=== PATIENT | male | born 1955 | race Caucasian/White ===

== ENCOUNTER 2017-03-16 19:48 | Day surgery (SDC) | payer BC, OTHER ==
[~2017-03-16] VITALS: Ht 180.3 cm; Wt 112.9 kg
[2017-03-16] MEDS ORDERED: KETOROLAC 30 MG/ML VIAL ONE (19:55)
[2017-03-16] MEDS ORDERED: fentaNYL INJECTION 100 MCG/2 ML AMP ONE ×2 (19:55→20:46)
[2017-03-16] MEDS ORDERED: ORPHENADRINE 60 MG/2 ML (NORFLEX) AMP ONE (19:56)
[2017-03-16 20:39] LABS: BASOPHILS # (AUTO) 0.1 10^3/uL (0.0-0.1); BASOPHILS % (AUTO) 1 % (0-10); EOSINOPHILS # (AUTO) 0.1 10^3/uL (0.0-0.3); EOSINOPHILS % (AUTO) 1 % (0-10); LYMPHOCYTES # (AUTO) 4.1 X 10^3 (1.0-4.0); LYMPHOCYTES % (AUTO) 43 % (12-44); MEAN CORPUSCULAR HEMOGLOBIN 30 PG (25-34); MEAN CORPUSCULAR HGB CONC 34 G/DL (32-36); MEAN CORPUSCULAR VOLUME 90 FL (80-99); MEAN PLATELET VOLUME 10.1 FL (7.4-10.4); MONOCYTES # (AUTO) 0.7 X 10^3 (0.0-1.0); MONOCYTES % (AUTO) 7 % (0-12); NEUTROPHILS # (AUTO) 4.7 X 10^3 (1.8-7.8); NEUTROPHILS % (AUTO) 49 % (42-75); PLATELET COUNT 214 10^3/uL (130-400); RED CELL DISTRIBUTION WIDTH 13.2 % (10.0-14.5); WHITE BLOOD COUNT 9.6 10^3/uL (4.3-11.0)
--- NOTE | 2017-03-16 20:44 | Diagnostic Imaging Report ---
INDICATION: Injury, fall off lawnmower. Deformity EXAMINATION: Right ankle dated 03/16/2017 FINDINGS: Three views of the ankle There is a transverse fracture through the medial malleolus which is displaced with diastases of at least 1.2 cm on the oblique view. Widening of the medial ankle mortise is also seen. Talar dome is grossly unremarkable. There is an oblique fracture of the distal fibula with mild displacement and foreshortening at the fracture site. A vague lucency in the posterior malleolus is noted possibly a fracture as well. Soft tissue swelling seen about the ankle. IMPRESSION: 1. Distal fibular and tibial fractures as described with widening at the ankle mortise. Postreduction films recommended. Dictated by: Dictated on workstation # [id number]
[2017-03-16] MEDS ORDERED: fentaNYL INJECTION 100 MCG/2 ML AMP IVP STA (20:49)
[2017-03-16 20:52] LABS: ALBUMIN 4.3 GM/DL (3.2-4.5); BILIRUBIN,TOTAL 0.3 MG/DL (0.1-1.0); CALCIUM 9.6 MG/DL (8.5-10.1); CREATININE SERUM 1.24 MG/DL (0.60-1.30); POTASSIUM 4.1 MMOL/L (3.6-5.0); TOTAL PROTEIN 7.3 GM/DL (6.4-8.2)
--- NOTE | 2017-03-16 20:52 | ED Lower Extremity ---
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 The patient was on his riding mower when he started to tip he extended his right leg and the ankle rolled. He had no injuries from the lawnmower. He is unable to bear weight on the right lower extremity. He denies any previous history of injuries to either lower extremities. He had a recent left elbow bursectomy by Dr. Clark Onset: just prior to arrival Pain/Injury Location: right ankle Method of Injury: twisted Modifying Factors: Improves With Immobilization, Improves With Rest Allergies and Home Medications Allergies Coded Allergies: No Known Drug Allergies (Unverified , 03/16/17) Home Medications [No Home Meds] Prescribed by: YULISA HERNANDEZ on 03/16/17 7428 Constitutional: no symptoms reported, see HPI EENTM: no symptoms reported, see HPI Respiratory: no symptoms reported, see HPI Cardiovascular: no symptoms reported, see HPI Gastrointestinal: no symptoms reported, see HPI Genitourinary: no symptoms reported, see HPI Musculoskeletal: see HPI, joint pain Skin: no symptoms reported (right ankle), see HPI Psychiatric/Neurological: No Symptoms Reported, See HPI All Other Systems Reviewed Negative Unless Noted: Yes Past Dhnoojh-Frhnrx-Bdywns Hx Patient Social History Alcohol Use: Denies Use Recreational Drug Use: No Smoking Status: Never a Smoker Recent Foreign Travel: No Contact w/Someone Who Travel: No Recent Infectious Disease Expo: No Recent Hopitalizations: No Seasonal Allergies Seasonal Allergies: No Cancer Hx Cancer: Yes Cancer: Lymphoma (right eye) Reviewed Nursing Assessment Reviewed/Agree w Nursing PMH: Yes Physical Exam Vital Signs Vital Sign - Last 12Hours 03/16/17 03/16/17 19:55 21:50 Temp 97.5 Pulse 73 Resp 18 B/P (MAP) 148/92 Pulse Ox 97 O2 Delivery Room Air Capillary Refill : Less Than 3 Seconds General Appearance: WD/WN, no apparent distress HEENT: PERRL/EOMI, normal ENT inspection, TMs normal, pharynx normal Neck: non-tender, full range of motion, supple, normal inspection Cardiovascular: normal peripheral pulses, regular rate, rhythm, no edema, no JVD, no murmur Respiratory: chest non-tender, lungs clear, normal breath sounds Gastrointestinal: normal bowel sounds, non tender, soft, No distended, No guarding Back: normal inspection, no CVA tenderness, no vertebral tenderness Hips: bilateral hip non-tender, bilateral hip normal inspection, bilateral hip normal range of motion Knees: bilateral knee non-tender, bilateral knee normal inspection, bilateral knee normal range of motion Ankles: left ankle non-tender, left ankle normal inspection, left ankle normal range of motion, left ankle no evidence of injury, right ankle bone tenderness, right ankle deformity, right ankle limited range of motion, right ankle pain, right ankle soft tissue tenderness, right ankle swelling, right ankle other ( neurovascular status intact right lower extremity, pedal pulses 2+) Neurologic/Tendon: normal sensation, normal motor functions, normal tendon functions, responds to pain Neurologic/Psychiatric: no motor/sensory deficits, alert, normal mood/affect, oriented x 3 Skin: normal color, warm/dry Lymphatic: no adenopathy Progress/Results/Core Measures Results/Orders Lab Results Laboratory Tests Test 03/16/17 20:00 03/16/17 21:11 Range/Units White Blood Count 9.6 4.3-11.0 10^3/uL Red Blood Count 5.10 4.35-5.85 10^6/uL Hemoglobin 15.4 13.3-17.7 G/DL Hematocrit 46 40-54 % Mean Corpuscular Volume 90 80-99 FL Mean Corpuscular Hemoglobin 30 25-34 PG Mean Corpuscular Hemoglobin Concent 34 32-36 G/DL Red Cell Distribution Width 13.2 10.0-14.5 % Platelet Count 214 130-400 10^3/uL Mean Platelet Volume 10.1 7.4-10.4 FL Neutrophils (%) (Auto) 49 42-75 % Lymphocytes (%) (Auto) 43 12-44 % Monocytes (%) (Auto) 7 0-12 % Eosinophils (%) (Auto) 1 0-10 % Basophils (%) (Auto) 1 0-10 % Neutrophils # (Auto) 4.7 1.8-7.8 X 10^3 Lymphocytes # (Auto) 4.1 H 1.0-4.0 X 10^3 Monocytes # (Auto) 0.7 0.0-1.0 X 10^3 Eosinophils # (Auto) 0.1 0.0-0.3 10^3/uL Basophils # (Auto) 0.1 0.0-0.1 10^3/uL Sodium Level 142 135-145 MMOL/L Potassium Level 4.1 3.6-5.0 MMOL/L Chloride Level 110 H 98-107 MMOL/L Carbon Dioxide Level 19 L 21-32 MMOL/L Anion Gap 13 5-14 MMOL/L Blood Urea Nitrogen 18 7-18 MG/DL Creatinine 1.24 0.60-1.30 MG/DL Estimat Glomerular Filtration Rate 59 BUN/Creatinine Ratio 15 Glucose Level 124 H 70-105 MG/DL Calcium Level 9.6 8.5-10.1 MG/DL Total Bilirubin 0.3 0.1-1.0 MG/DL Aspartate Amino Transf (AST/SGOT) 31 5-34 U/L Alanine Aminotransferase (ALT/SGPT) 21 0-55 U/L Alkaline Phosphatase 82 40-136 U/L Total Protein 7.3 6.4-8.2 GM/DL Albumin 4.3 3.2-4.5 GM/DL Prothrombin Time 12.8 12.2-14.7 SEC INR Comment 1.0 0.8-1.4 Activated Partial Thromboplast Time 24 24-35 SEC My Orders Orders - LINDEN WATSON Ankle, Right, 3 Views (03/16/17 19:59) Fentanyl Injection (Sublimaze Injection (03/16/17 19:55) Ketorolac Injection (Toradol Injection) (03/16/17 19:55) Orphenadrine Injection (Norflex Injectio (03/16/17 19:56) Cbc With Automated Diff (03/16/17 20:34) Comprehensive Metabolic Panel (03/16/17 20:34) Protime With Inr (03/16/17 20:34) Partial Thromboplastin Time (03/16/17 20:34) Ua Culture If Indicated (03/16/17 20:34) Ekg Tracing (03/16/17 20:34) Fentanyl Injection (Sublimaze Injection (03/16/17 20:49) Fentanyl Injection (Sublimaze Injection (03/16/17 20:46) Hyoscyamine Sl Tablet (Levsin Sl Tablet) (03/16/17 21:00) Acetaminophen Tablet/Caplet (Tylenol T (03/16/17 20:53) Medications Given in ED Current Medications Medications Dose Ordered Sig/Faraz Route Start Time Stop Time Status Last Admin Dose Admin Fentanyl Citrate 100 mcg STK-MED ONCE .ROUTE 03/16/17 19:55 03/16/17 20:01 DC 03/16/17 20:05 100 MCG Fentanyl Citrate 100 mcg STK-MED ONCE .ROUTE 03/16/17 20:46 03/16/17 20:51 DC 03/16/17 20:53 100 MCG Ketorolac Tromethamine 30 mg STK-MED ONCE .ROUTE 03/16/17 19:55 03/16/17 20:02 DC 03/16/17 20:05 30 MG Orphenadrine Citrate 60 mg STK-MED ONCE .ROUTE 03/16/17 19:56 03/16/17 20:02 DC 03/16/17 20:05 60 MG Vital Signs/I&O Vital Sign - Last 12Hours 03/16/17 03/16/17 03/16/17 19:55 21:50 22:35 Temp 97.5 99.3 97.5 Pulse 73 65 73 Resp 18 18 18 B/P (MAP) 148/92 137/66 Pulse Ox 97 94 97 O2 Delivery Room Air Blood Pressure Mean: 110 Progress Note : Time: 19:50 Progress Note Initial evaluation completed, we'll obtain x-rays of the right ankle. Fentanyl 50 g IV for pain, Toradol 30 mg IV, Norflex 60 mg IV. Ice to right ankle elevated on pillow. 2114 patient reports pain is tolerable, 12/19. 2044 discussed patient's x-rays and exam with Dr. Hernandez. He will come to emergency department for evaluation patient. 2049 patient reports pain is increasing again, fentanyl [address] Hernandez here for splint application, patient tolerated procedure well. [address] Martinez by phone, agreed to admit patient for medical evaluation and management as hospitalist. ECG Initial ECG Impression Date: Mar 16, 2017 Initial ECG Impression Time: 21:01 Initial ECG Rate: 59 Initial ECG Rhythm: Normal Sinus Initial ECG Intervals: Normal Initial ECG Intervals ND to 36, QRS T 96, QT 400, QTC 397. [place] P 49, QRS -36, T 7 Initial ECG Impression: 1st Degree AV Block (with left axis deviation.) Initial ECG Comparisson: No Previous ECG Available Comment EKG reviewed with Dr. Loya, agreed with ROSARIO barahona. Diagnostic Imaging Diagonstic Imaging: Xray Plain Films/CT/US/NM/MRI: ankle Comments NAME: [facility] REC#: [id number] PT STATUS: REG ER : 1955 PHYSICIAN: LINDEN WATSON ADMIT DATE: 03/16/17/ER Draft Date of Exam:03/16/17 ANKLE, RIGHT, 3 VIEWS INDICATION: Injury, fall off lawnmower. Deformity EXAMINATION: Right ankle dated 03/16/2017 FINDINGS: Three views of the ankle There is a transverse fracture through the medial malleolus which is displaced with diastases of at least 1.2 cm on the oblique view. Widening of the medial ankle mortise is also seen. Talar dome is grossly unremarkable. There is an oblique fracture of the distal fibula with mild displacement and foreshortening at the fracture site. A vague lucency in the posterior malleolus is noted possibly a fracture as well. Soft tissue swelling seen about the ankle. IMPRESSION: 1. Distal fibular and tibial fractures as described with widening at the ankle mortise. Postreduction films recommended. Dictated on workstation # [id number] Dict: 03/16/172035 Trans: 03/16/172042 [facility] [id number] Interpreted by: BERNARD NIELSEN MD Electronically signed by: Reviewed: Reviewed by Me Departure Impression Impression: Primary Impression: Trimalleolar fracture of right ankle Qualified Codes: S82.851A - Displaced trimalleolar fracture of right lower leg , initial encounter for closed fracture Disposition: ADMITTED INPATIENT Condition: Improved Decision to Admit Reason: Admit from ER (General) Decision to Admit/Date: Mar 17, 2017 Time/Decision to Admit Time: 21:00 Departure-Patient Inst. Scripts [No Home Meds] No Conflict Check Prov: YULISA HERNANDEZ MD 03/16/17 LINDEN WATSON Mar 16, 2017 20:52
[2017-03-16] MEDS ORDERED: ACETAMINOPHEN 325 MG TABLET/CAPLET (TYLENOL) PO STA (20:53)
[2017-03-16] MEDS ORDERED: HYOSCYAMINE 0.125 MG (LEVSIN) TAB SL ONE (21:00)
[2017-03-16 21:32] LABS: PROTHROMBIN TIME PATIENT 12.8 SEC (12.2-14.7)
[2017-03-16 21:50] VITALS: BP 137/66
--- NOTE | 2017-03-16 22:29 | Consultation ---
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 Allergies and Home Medications Allergies Coded Allergies: No Known Drug Allergies (Unverified , 03/16/17) Home Medications [No Home Meds] Prescribed by: YULISA HERNANDEZ on 03/16/17 3147 Past Zvqtvgc-Vlhopk-Npescf Hx Patient Social History Alcohol Use: Denies Use Recreational Drug Use: No Smoking Status: Never a Smoker Recent Foreign Travel: No Contact w/Someone Who Travel: No Recent Infectious Disease Expo: No Recent Hopitalizations: No Seasonal Allergies Seasonal Allergies: No Physical Exam-General Problems Physical Exam Vital Signs Vital Sign - Last 12Hours 03/16/17 19:55 Temp 97.5 Pulse 73 Resp 18 B/P (MAP) 148/92 Pulse Ox 97 Capillary Refill : Less Than 3 Seconds General Appearance: WD/WN, mild distress Eyes: Bilateral Eye Normal Inspection Respiratory: no respiratory distress, no accessory muscle use Extremities: other (RIGHT ANKLE MILD SWELLING. SKIN INTACT. MILD DEFORMITY.) Assessment/Plan Assessment/Plan Admission Diagnosis/Plan RIGHT ANKLE BIMALLEOLAR FRACTURE WITH SYNDESMOTIC LIGAMENT DISRUPTED. CLOSED, INITIAL ENCOUNTER, NONARTICULAR. PLAN: CONSENT COMPLEATED. TOMORROW: SURGERY ON RIGHT ANKLE TO LINE UP BONE AND FIX WITH HARDWARE. Clinical Quality Measures DVT/VTE Risk/Contraindication: RFS Level Per Nursing on Admit: 2=Moderate Contraindications-Mechi: Other *list below* Other: OK TO USE ON LEFT, RIGHT HAS FRACTURE AND TOO PAINFUL TO USE YULISA HERNANDEZ MD Mar 16, 2017 22:29
[2017-03-16] MEDS ORDERED: NO HOME MEDS (22:37)
[2017-03-16 22:45] LABS: BILIRUBIN,URINE NEGATIVE (NEGATIVE); KETONES,URINE 1+ (NEGATIVE); LEUKOCYTE ESTERASE ,URINE NEGATIVE (NEGATIVE); NITRITE,URINE NEGATIVE (NEGATIVE); PH,URINE 5 (5-9); PROTEIN,URINE 1+ (NEGATIVE); UROBILINOGEN,URINE NORMAL (NORMAL)
[2017-03-16 23:11] LABS: WBC,URINE 0-2 /HPF
[2017-03-16] MEDS ORDERED: NS IV 1000 ML 1,000 ML ONE (23:34)
[2017-03-17] MEDS ORDERED: NS IV 1000 ML 1,000 ML IV SCH ×2 (00:45→10:21)
[2017-03-17] MEDS ORDERED: ONDANSETRON 4 MG/2 ML (SDV) Z0FRAN IV PRN ×3 (01:00→10:30)
[2017-03-17] MEDS ORDERED: oxyCODONE/APAP 7.5-325 MG (PERCOCET 7.5) TABLET PO PRN (01:00)
[2017-03-17] MEDS ORDERED: ceFAZolin 2 GM/NS 50 ML IV ONE (01:00)
[2017-03-17] MEDS: HYDROmorphone (DILAUDID) 2 MG/ML VIAL IV PRN ×2 (01:05→07:17)
[2017-03-17 04:00] VITALS: BP 133/75
[2017-03-17 08:00] VITALS: BP 130/74
[2017-03-17] MEDS ORDERED: ceFAZolin 1,000 MG (ANCEF) VIAL ONE (09:22)
[2017-03-17] MEDS ORDERED: fentaNYL INJECTION 250 MCG/5 ML AMP ONE (09:22)
[2017-03-17] MEDS ORDERED: LACTATED RINGERS 1,000 ML IV ONE (09:22)
[2017-03-17] MEDS ORDERED: DEXAMETHASONE PF 10 MG/ML (DECADRON) VIAL ONE (09:22)
[2017-03-17] MEDS ORDERED: LIDOCAINE PF 2% 5 ML (XYLOCAINE) VIAL ONE (09:22)
[2017-03-17] MEDS ORDERED: MIDAZOLAM 2 MG/2 ML (VERSED) VIAL ONE (09:22)
[2017-03-17] MEDS ORDERED: SEVOFLURANE (ULTANE) 15 ML INHAL SOLN ONE ×8 (09:22→12:47)
[2017-03-17] MEDS ORDERED: proPOfol 200 MG/20 ML (DIPRIVAN) VIAL IV ONE (09:22)
[2017-03-17] MEDS ORDERED: ONDANSETRON 4 MG/2 ML (SDV) Z0FRAN ONE (09:22)
[2017-03-17] MEDS ORDERED: BUPIVACAINE 0.5% 30 ML (SENSORCAINE) VIAL ONE (09:27)
[2017-03-17] MEDS ORDERED: LACTATED RINGERS 1,000 ML IV PRN (09:28)
[2017-03-17] MEDS ORDERED: RT-ALBUTEROL/IPRATROPIUM 3 ML (DUONEB) VIAL INH PRN (10:00)
[2017-03-17] MEDS ORDERED: NALOXONE 0.4 MG/ML 1 ML (NARCAN) VIAL IV PRN (10:30)
[2017-03-17] MEDS ORDERED: METOCLOPRAMIDE INJ 10 MG/2 ML (REGLAN) IV PRN (10:30)
[2017-03-17] MEDS ORDERED: ACETAMINOPHEN 650 MG SUPP (TYLENOL) PR PRN (10:30)
[2017-03-17] MEDS ORDERED: diphenhydrAMINE 50 MG/ML INJ (BENADRYL) IV PRN (10:30)
[2017-03-17] MEDS ORDERED: APAP 300 MG/CODEINE 30 MG (TYLENOL #3) TAB PO PRN (10:30)
--- NOTE | 2017-03-17 10:52 | History & Physical-Hospitalist ---
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 Pt will need surgery for the fracture. Patient Interview: Pt states that he remembered me. He was a previous hospice [place] Pt and his confirms that pt had lymphoma around his right eye, but was mostly healthy other than that. Pt had chemo with Dr. Herzog in [place], t did not need surgery for this. 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 Pt denies smoking and ETOH use Pt was assured that we will repair the ankle and get him out as soon as possible. Pt looks good for surgery. Pt asked about later PT, we are unsure of PT plans but will know more information after his surgery. Physical exam stable. Lungs sound perfect Scribed by Elke Burton under the direct supervision of Dr. Martinez. 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) Alcohol Use: Denies Use Recreational Drug Use: No Smoking Status: Former Smoker Type Used: Cigarettes Physical Abuse Screen: No Sexual Abuse: No Recent Foreign Travel: No Contact w/other who traveled: No Recent Hopitalizations: No Recent Infectious Disease Expo: No Seasonal Allergies Seasonal Allergies: No Surgeries HX Surgeries: No Respiratory Hx Respiratory Disorders: No Cardiovascular Hx Cardiovascular Disorders: No Neurological Hx Neurological Disorders: No Genitourinary Hx Genitourinary Disorders: No Gastrointestinal Hx Gastrointestinal Disorders: No Musculoskeletal Hx Musculoskeletal Disorders: No Endocrine Hx Endocrine Disorders: No HEENT HX ENT Disorders: No Cancer Hx Cancer: Yes Cancer: Lymphoma (right eye) Psychosocial Hx Psychiatric Problems: No Reviewed Nursing Assessment Reviewed/Agree w Nursing PMH: Yes Family Medical History Family Hx: Alzheimer's disease 19 MOTHER Cardiovascular disease 19 FATHER, Diabetes mellitus 19 FATHER, Review of Systems Constitutional: see HPI EENTM: no symptoms reported Respiratory: no symptoms reported Cardiovascular: no symptoms reported Gastrointestinal: no symptoms reported Musculoskeletal: joint pain (right ankle) Psychiatric/Neurological: No Symptoms Reported All Other Systems Reviewed Negative Unless Noted: Yes Physical Exam Physical Exam Vital Signs Vital Sign - Last 12Hours 03/16/17 03/16/17 19:55 21:50 Temp 97.5 Pulse 73 Resp 18 B/P (MAP) 148/92 Pulse Ox 97 O2 Delivery Room Air Capillary Refill : Less Than 3 Seconds General Appearance: No Apparent Distress, WD/WN, Obese Eyes: Bilateral Eye Normal Inspection, Bilateral Eye PERRL HEENT: PERRL/EOMI, Normal ENT Inspection, Pharynx Normal Neck: Full Range of Motion, Normal Inspection, Non Tender, Supple, Carotid Bruit Respiratory: Chest Non Tender, Lungs Clear, Normal Breath Sounds, No Accessory Muscle Use, No Respiratory Distress Cardiovascular: Regular Rate, Rhythm, No Edema, No Gallop, No JVD, No Murmur, Normal Peripheral Pulses Gastrointestinal: Normal Bowel Sounds, No Organomegaly, No Pulsatile Mass, Non Tender, Soft Back: Normal Inspection, No CVA Tenderness, No Vertebral Tenderness Extremity: Normal Capillary Refill, Normal Inspection, Normal Range of Motion ( except right ankle), Non Tender, No Calf Tenderness, No Pedal Edema Neurologic/Psychiatric: Alert, Oriented x3, No Motor/Sensory Deficits, Normal Mood/Affect Skin: Normal Color, Warm/Dry Lymphatic: No Adenopathy Results Results/Procedures Lab Laboratory Tests 03/16/17 20:00 Assessment/Plan Admission Diagnosis Assessment: Acute right ankle fracture Lymphoma of right eye remotely Assessment and Plan Plan: Surgery today since benefits outweigh medical risks Monitor pt in meantime Clinical Quality Measures DVT/VTE Risk/Contraindication: Risk Factor Score Per Nursin RFS Level Per Nursing on Admit: 4+=Very High Contraindications-Mechi: Other *list below* Other: OK TO USE ON LEFT, RIGHT HAS FRACTURE AND TOO PAINFUL TO USE ECHO MARTINEZ DO Mar 17, 2017 10:52
[2017-03-17] MEDS ORDERED: morphine INJ 10 MG/ML 1ML (SYR OR VIAL) ONE (11:41)
[2017-03-17] MEDS ORDERED: fentaNYL INJECTION 100 MCG/2 ML AMP IVP PRN (13:15)
[2017-03-17] MEDS ORDERED: HYDROmorphone (DILAUDID) 2 MG/ML VIAL IVP PRN ×2 (13:15)
[2017-03-17] MEDS ORDERED: morphine INJ 10 MG/ML 1ML (SYR OR VIAL) IVP PRN (13:15)
--- NOTE | 2017-03-17 13:45 | Progress Note-Post Operative ---
Post-Operative Progess Note Surgeon (s)/Custom Designer (s) Surgeon YULISA HERNANDEZ MD Custom Designer: None Pre-Operative Diagnosis right ankle bi-malleolar fx, with syndesmotic ligament dysruption Post-Operative Diagnosis Same Procedure & Operative Findings Date of Procedure 03/17/17 Procedure Performed/Findings ORIF of medial malleolus with cannulated screws, synthes x 2 ORIF fibula with synthes LDP 10 hole plate Fixation of syndesmotic ligament with two Arthrex Tight Ropes Findings: Anatomic reduction Anesthesia Type general Estimated Blood Loss Estimated blood loss (mL): Minimal Specimens/Packing Specimens Removed None YULISA HERNANDEZ MD Mar 17, 2017 13:45
--- NOTE | 2017-03-17 14:07 | Diagnostic Imaging Report ---
INDICATION: Followup right ankle fracture. DISCUSSION: Fluoroscopic support is provided during intraoperative open reduction internal fixation of the right ankle. Images were inadvertently marked left though this is a right ankle. Please see the operative report for full detail. Fluoroscopy time: 166 seconds. IMPRESSION: 1. Intraoperative ORIF of the right ankle. Dictated by: Dictated on workstation # [id number]
[2017-03-17] MEDS ORDERED: ACET-93 PO (14:20)
--- NOTE | 2017-03-17 14:51 | Physical Therapy Progress Note ---
Therapy Progress Note Patient has returned to his room from recovery and continues to be too sedated to safely begin PT. PT discussed with spouse that the evaluation would be performed in the a.m. and would assess mobility with use of FWW, crutches and knee scooter to deem most appropriate and safe. Spouse agrees. PT to begin in a.m. 1 visit BRIT BAXTER PT Mar 17, 2017 14:51
[2017-03-17] MEDS: ONDANSETRON 8 MG (ZOFRAN) ORAL DISSOLVE TAB PO SCH ×2 (15:39→18:30)
[2017-03-17 16:08] VITALS: BP 139/74
[2017-03-17] MEDS: 1/2 NS IV SOLUTION 1,000 ML IV SCH ×2 (18:29→18:31)
[2017-03-17] MEDS: ceFAZolin 2 GM/50 ML NS 50 ML IV SCH (18:29)
[2017-03-17] MEDS: oxyCODONE/APAP 5/325MG (PERCOCET 5) TABLET PO PRN (20:38)
[2017-03-17 20:45] VITALS: BP 132/65
[2017-03-18] VITALS: BP 136/59
[2017-03-18] MEDS: ONDANSETRON 8 MG (ZOFRAN) ORAL DISSOLVE TAB PO SCH ×2 (01:02→08:52)
[2017-03-18] MEDS: ceFAZolin 2 GM/50 ML NS 50 ML IV SCH ×2 (01:51→09:05)
[2017-03-18] MEDS: oxyCODONE/APAP 5/325MG (PERCOCET 5) TABLET PO PRN (01:57)
[2017-03-18 03:33] VITALS: BP 134/60
[2017-03-18] MEDS: 1/2 NS IV SOLUTION 1,000 ML IV SCH ×2 (04:39→11:53)
[2017-03-18 08:00] VITALS: BP 120/67
--- NOTE | 2017-03-18 08:35 | Physical Therapy Evaluation ---
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 Agrees to PT. Meds have been given. Pain Numeric Pain Scale: 10-Worst Possible Pain Location: Right Location Body Site: Ankle Pain Description: Acute, Burning, Sharp Objective Patient Orientation: Normal For Age Problem Solving: Good ROM/Strength ROM Lower Extremities left LE WNL right ankle NT; LE WNL Strenght Lower Extremities left LE 5/5 grossly all planes right knee flexion/extension and hip flexion 5/5 Integumentary/Posture Integumentary refer to nursing notes Bowel Incontinence: No Bladder Incontinence: No Posture WNL Neuromuscular (Tone, Coordination, Reflexes) grossly intact Sensory Vision: Functional Hearing: Functional Sensation Right Lower Extremit: Intact Sensation Left Lower Extremity: Intact Transfers Functional [place] Measure 0=Not Assessed/NA 4=Minimal Assistance 1=Total Assistance 5=Supervision or Setup 2=Maximal Assistance 6=Modified [place] 3=Moderate Assistance 7=Complete [place] Transfers (B, C, W/C) (FIM): 6 Scootin Rollin Supine to/from Sit: 6 Sit to/from Stand: 6 Gait Mode of Locomotion: Walk Anticipated Mode of Locomotion: Walk Gait (FIM): 5 Distance (FIM): 3=150 ft Gait Level of Assist: 5 Gait Assistive Device: Crutches Comments/Gait Description and knee scooter for distance mobility; NWB right LE Stairs Stairs (FIM): 5 #of Steps: 6 Level of Assist: 5 Assistive Device: Crutches Balance Sitting Static: Normal Sitting Dynamic: Normal Standing Static: Normal Standing Dynamic: Normal Assessment/Needs 61 y.o. active male, demonstrates good mobility with use of crutches and knee scooter to maintain NWB right LE. Patient has been instructed to ascend steps on his bottom to ensure safety. Patient will require both assistive devices for safe mobility in the home and in the community. Rehab Potential: Good PT Plan Treatment/Plan Treatment Plan: Discontinue PT, goals met Treatment Plan: Education, Other, Safety Treatment Duration: Mar 18, 2017 Frequency: 1 time per week Estimated Hrs Per Day: .5 hour per day Patient and/or Family Agrees t: Yes Safety Risks/Education Patient Education: Gait Training, Steps Teaching Recipient: Patient Teaching Methods: Demonstration, Discussion Response to Teaching: Verbalize Understanding, Return Demonstration Discharge Recommendations Therapy D/C Recommendations: Home w/ Family Support Equpiment Recommendations-D/C: Crutches, Other, Please Explain (knee scooter for distance in community) Time/GCodes Time In: 805 Time Out: 830 Total Billed Treatment Time: 25 Total Billed Treatment 1 visit EVMod 25 min G Codes Necessary: BRIT Marmolejo PT Mar 18, 2017 08:35
[2017-03-18] MEDS ORDERED: SENNA W/DOCUSATE (SENOKOT S) TABLET PO SCH (09:00)
[2017-03-18] MEDS ORDERED: OXYC-464 PO (09:59)
--- NOTE | 2017-03-18 10:04 | Discharge Summary-Hospitalist ---
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 Pt will need surgery for the fracture. Patient Interview: Pt states that he remembered me. He was a previous hospice Doming[facility] Pt and his confirms that pt had lymphoma around his right eye, but was mostly healthy other than that. Pt had chemo with Dr. Herzog in [place], t did not need surgery for this. 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 Pt denies smoking and ETOH use Pt was assured that we will repair the ankle and get him out as soon as possible. Pt looks good for surgery. Pt asked about later PT, we are unsure of PT plans but will know more information after his surgery. Physical exam stable. Lungs sound perfect Scribed by Elke Burton under the direct supervision of Dr. Martinez. Hospital course: patient had an uncomplicated repair of the right ankle fracture and pain was controlled and knee scooter and crutches were ordered and was agreeable to DC. He wanted to go home with IV Dilaudid but that was not medically necessary so Percocet was written for pharmacy to fill and he was DC home without difficulty. Discharge Summary Discharge Physical Examination Allergies: Coded Allergies: No Known Drug Allergies (Unverified , 03/16/17) Vitals & I&Os Vital Signs Date Time Temp Pulse Resp B/P (MAP) Pulse Ox O2 Delivery O2 Flow Rate FiO2 03/18/17 08:00 99.3 93 20 120/67 94 Room Air 03/18/17 00:00 3.00 Discharge Home Medications: Active Scripts Active Oxycodon-Acetaminophen 7.5-325 (Oxycodone HCl/Acetaminophen) 1 Each Tablet 1 Each PO Q4H PRN Reported Acetaminophen 500 Mg Tablet 500 Mg PO HS PRN Instructions to patient/family Please see electonic discharge instructions given to patient. Clinical Quality Measures DVT/VTE Risk/Contraindication: Risk Factor Score Per Nursin RFS Level Per Nursing on Admit: 4+=Very High Contraindications-Mechi: Other *list below* Other: OK TO USE ON LEFT, RIGHT HAS FRACTURE AND TOO PAINFUL TO USE GUILLE MARTINEZ DO Mar 18, 2017 10:04
[2017-03-18] MEDS ORDERED: ACET-789 PO (10:47)
[2017-03-18 11:15] VITALS: BP 120/67
--- NOTE | 2017-03-18 11:56 | Progress Note-Standard ---
Standard Progress Note Progress Notes/Assess & Plan Time Seen by Provider: 11:50 (Patient departed about 1055 according to his nurse.) Progress/Assessment & Plan I arrived on the floor at 11:50 and was informed that the patient had been doing very well and was discharged 15 minutes prior. Only oral meds needed for pain this AM according to his nurse. Final Diagnosis status post right ankle bimalleolar fx ORIF YULISA HERNANDEZ MD Mar 18, 2017 11:56 am
--- NOTE | 2017-03-18 16:10 | Anesthesia-General Post-Op ---
General Patient Condition Mental Status/LOC: Same as Preop Cardiovascular: Satisfactory Nausea/Vomiting: Absent Respiratory: Satisfactory Pain: Controlled Complications: Absent Post Op Complications Complications None Follow Up Care/Instructions Patient Instructions None needed. Anesthesia/Patient Condition Patient Condition Patient is doing well, no complaints, stable vital signs, no apparent adverse anesthesia problems. No complications reported per nursing. D/C home per [facility] Criteria: Yes CAROLINA BILLS CRNA Mar 18, 2017 16:10
--- NOTE | 2017-03-19 00:56 | OPERATIVE REPORT ---
PROCEDURE PHYSICIAN: YULISA HERNANDEZ DATE OF PROCEDURE: 03/17/2017 PREOPERATIVE DIAGNOSES: 1. Right ankle bimalleolar fracture. 2. Disruption of the right ankle syndesmotic ligament. POSTOPERATIVE DIAGNOSES: 1. Right ankle bimalleolar fracture. 2. Disruption of the right ankle syndesmotic ligament. PROCEDURE: 1. Open reduction internal fixation of the medial malleolus with two 4.0 cannulated Synthes screws. 2. ORIF with fibular high fracture, using LDC Synthes plate with compression screws. 3. Fixation of the syndesmotic ligament with two Arthrex TightRope systems. ANESTHESIA: General. COMPLICATIONS: None. SPECIMENS: None. PERIOPERATIVE MEDICATIONS: The patient received 2 grams of Ancef preoperatively right before the procedure. FINDINGS: We were able to get anatomic reduction of the fibular fracture and the medial malleolar fracture. The TightRopes did well for compressing and holding the syndesmotic ligament. NARRATIVE SUMMARY: The patient was taken to the operating room after the standard nursing and anesthesia preoperative identification, evaluation and counseling. The right lower extremity was prepared and draped in the usual orthopedic fashion. Attention was turned medially where a curved incision was made, reduction was accomplished followed by a guidewire, cannulated screw for anatomic reduction under C-arm visualization. Lateral incision was made over the fibular fracture and down to the fibular neck. A locking dynamic plate was placed after being bent to contour to the fibula. It was first held by a single compression screw and then by more compression screws. One screw over the fracture itself was left empty. Another screw not needed up at the proximal end was left open and the most proximal screw hole was used. Two of the screw holes were used for the TightRope system to hold the syndesmotic joint in place. Wounds were all irrigated. AP and lateral x-rays were obtained to show that the plate was in good position. Wounds were irrigated another time and then closed in two layers with Vicryl deep and stapes superficial. He was then placed in a Velcro boot and returned to the recovery room in stable condition. Job ID: [id number] Dictated Date: 03/17/2017 13:56:26 Appeals Assistant Date: 03/19/2017 00:40:15 / alia
--- OUTSIDE RECORDS SUMMARY | 2017-03-21 04:52 | XMS REPORT | Continuity of Care Document ---
Demographics Preferred Language Unknown Marital Status Unknown Tenriism Affiliation Unknown Race Unknown Ethnic Group Unknown Author Author [facility] Address Unknown Phone Unavailable Allergies Medications Problems Date Dx Coded Attending Type Code Diagnosis Diagnosed By 01/07/2013 380.4 CERUMEN IMPACTION 01/07/2013 784.91 drip or drainage down throat from above 01/07/2013 V70.0 NORMAL ROUTINE HISTORY AND PHYSICAL 01/07/2013 V76.44 PROSTATE CANCER SCREENING Procedures Code Description [place] [address] ROUTINE VENIPUNCTURE 01/07/2013 10753 EAR LAVAGE 2012 60122 CMP 01/07/2013 99712 LIPID PANEL 01/07 26942 TSH 01/07/2013 51833 CBC 01/07/2013 Results Encounters ACCT No. Visit Date/Time Discharge Status Pt. Type Provider Facility Loc./Unit Complaint [id number] 01/07/2013 12:22:00 Document Registration
--- OUTSIDE RECORDS SUMMARY | 2017-03-21 04:52 | XMS REPORT ---
Author Author YONNY YANG [facility] [employer] Address Unknown Phone Unavailable Care Team Providers Care Color Separation Photographer Name Role Phone YONNY YANG CP Unavailable Allergies No Known Allergies Problems Problem Type Condition Code Onset Dates Condition Status Problem Rectal bleeding K62.5 Active Problem Left-sided low back pain with left-sided sciatica, unspecified chronicity M54.42 Active Medications No Known Medications Results No Known Results Summary Purpose e[employer] Submission
--- OUTSIDE RECORDS SUMMARY | 2017-03-21 04:52 | XMS REPORT ---
Author Author YONNY YANG Organization [employer] Address Unknown Phone Unavailable Care Team Providers Care Executive Advisor Name Role Phone YONNY AYNG CP Unavailable Allergies No Known Allergies Problems Problem Type Condition Code Onset Dates Condition Status Problem Rectal bleeding K62.5 Active Assessment Lymphoma, unspecified body region, unspecified lymphoma type C85.90 Active Problem Left-sided low back pain with left-sided sciatica, unspecified chronicity M54.42 Active Medications No Known Medications Results No Known Results Summary Purpose eClinicalWorks Submission
--- OUTSIDE RECORDS SUMMARY | 2017-03-21 05:22 | XMS REPORT | Continuity of Care Document ---
Demographics Preferred Language Unknown Marital Status Unknown Faith Affiliation Unknown Race Unknown Ethnic Group Unknown Author Author [facility] Address Unknown Phone Unavailable Allergies Medications Problems Date Dx Coded Attending Type Code Diagnosis Diagnosed By 01/07/2013 380.4 CERUMEN IMPACTION 01/07/2013 784.91 drip or drainage down throat from above 01/07/2013 V70.0 NORMAL ROUTINE HISTORY AND PHYSICAL 01/07/2013 V76.44 PROSTATE CANCER SCREENING Procedures Code Description [place] [address] ROUTINE VENIPUNCTURE 01/07/2013 48377 EAR LAVAGE 2012 00533 CMP 01/07/2013 98553 LIPID PANEL 01/07 10391 TSH 01/07/2013 77310 CBC 01/07/2013 Results Encounters ACCT No. Visit Date/Time Discharge Status Pt. Type Provider Facility Loc./Unit Complaint [id number] 01/07/2013 12:22:00 Document Registration
--- OUTSIDE RECORDS SUMMARY | 2017-03-21 19:55 | XMS REPORT | Continuity of Care Document ---
Demographics Preferred Language Unknown Marital Status Unknown Rastafari Affiliation Unknown Race Unknown Ethnic Group Unknown Author Author [facility] Address Unknown Phone Unavailable Allergies Medications Problems Date Dx Coded Attending Type Code Diagnosis Diagnosed By 01/07/2013 380.4 CERUMEN IMPACTION 01/07/2013 784.91 drip or drainage down throat from above 01/07/2013 V70.0 NORMAL ROUTINE HISTORY AND PHYSICAL 01/07/2013 V76.44 PROSTATE CANCER SCREENING Procedures Code Description [place] [address] ROUTINE VENIPUNCTURE 01/07/2013 90800 EAR LAVAGE 2012 45063 CMP 01/07/2013 40391 LIPID PANEL 01/07 10365 TSH 01/07/2013 84543 CBC 01/07/2013 Results Encounters ACCT No. Visit Date/Time Discharge Status Pt. Type Provider Facility Loc./Unit Complaint [id number] 01/07/2013 12:22:00 Document Registration
--- OUTSIDE RECORDS SUMMARY | 2017-04-05 21:53 | XMS REPORT | Continuity of Care Document ---
Demographics Preferred Language Unknown Marital Status Unknown Anabaptist Affiliation Unknown Race Unknown Ethnic Group Unknown Author Author [facility] Address Unknown Phone Unavailable Allergies Medications Problems Date Dx Coded Attending Type Code Diagnosis Diagnosed By 01/07/2013 380.4 CERUMEN IMPACTION 01/07/2013 784.91 drip or drainage down throat from above 01/07/2013 V70.0 NORMAL ROUTINE HISTORY AND PHYSICAL 01/07/2013 V76.44 PROSTATE CANCER SCREENING Procedures Code Description [place] [address] ROUTINE VENIPUNCTURE 01/07/2013 50199 EAR LAVAGE 2012 99549 CMP 01/07/2013 66983 LIPID PANEL 01/07 36198 TSH 01/07/2013 61747 CBC 01/07/2013 Results Encounters ACCT No. Visit Date/Time Discharge Status Pt. Type Provider Facility Loc./Unit Complaint [id number] 01/07/2013 12:22:00 Document Registration
== END 2017-03-18 11:15 | disposition home or self-care (01) ==
LOC: ER 19:52 → SDC 22:39 → UNDOADMOB 22:39 → 4TH 22:39 → UNDODISOB 03-18 11:15 → 4TH 03-18 11:15 → SDC 03-18 11:15
PROVIDERS: ATTEND Internal Medicine
DX: S82.851A Displaced trimalleolar fracture of right lower leg, initial encounter for closed fracture (principal); I44.0 Atrioventricular block, first degree; Z98.890 Other specified postprocedural states; Z85.72 Personal history of non-Hodgkin lymphomas; Z92.21 Personal history of antineoplastic chemotherapy; W20.8XXA Other cause of strike by thrown, projected or falling object, initial encounter; Y93.H9 Activity, other involving exterior property and land maintenance, building and construction; Y99.8 Other external cause status
CPT/HCPCS: 36415; 73610; 80053; 81000; 85025; 85610; 85730; 87081; 93005; 94760; 96374; 96375; 96376

== ENCOUNTER 2017-04-06 15:17 | Emergency (ER) | payer BC ==
[~2017-04-06] VITALS: Ht 180.3 cm; Wt 111.1 kg
[~2017-04-06 15:17] MED LIST: ACET-789 PO; ACET-93 PO; NO HOME MEDS; OXYC-464 PO
[2017-04-06] MEDS ORDERED: MELO15TA14 PO (16:03)
[2017-04-06 16:38] LABS: BASOPHILS % (AUTO) 1 % (0-10); EOSINOPHILS # (AUTO) 0.1 10^3/uL (0.0-0.3); EOSINOPHILS % (AUTO) 1 % (0-10); LYMPHOCYTES # (AUTO) 2.5 X 10^3 (1.0-4.0); LYMPHOCYTES % (AUTO) 31 % (12-44); MEAN CORPUSCULAR HEMOGLOBIN 30 PG (25-34); MEAN CORPUSCULAR HGB CONC 33 G/DL (32-36); MEAN CORPUSCULAR VOLUME 89 FL (80-99); MEAN PLATELET VOLUME 9.7 FL (7.4-10.4); MONOCYTES # (AUTO) 0.6 X 10^3 (0.0-1.0); MONOCYTES % (AUTO) 7 % (0-12); NEUTROPHILS # (AUTO) 4.8 X 10^3 (1.8-7.8); NEUTROPHILS % (AUTO) 60 % (42-75); PLATELET COUNT 215 10^3/uL (130-400); RED CELL DISTRIBUTION WIDTH 12.9 % (10.0-14.5)
[2017-04-06 16:49] LABS: PROTHROMBIN TIME PATIENT 13.2 SEC (12.2-14.7)
[2017-04-06] MEDS ORDERED: RIVA15TA PO (17:26)
--- NOTE | 2017-04-06 17:27 | ED General ---
General Chief Complaint: Lower Extremity Stated Complaint: RT CALF BLOOD CLOT Nursing Triage Note: TO ROOM 04 VIA . PT HAD A ROUTINE VISIT WITH [facility] TODAY WHERE THEY DETECTED A BLOOD CLOT IN HI RIGHT LEG. PT THINKS HE WAS SENT HERE FOR A "SHOT". PT AND RIGHT ANKLE SURGERY ON THE 6TH. HAS BEEN WEARING A BOOT BUT A CAST WAS PLACED TODAY. Nursing Sepsis Screen: No Definite Risk Source of Information: Patient Exam Limitations: No Limitations History of Present Illness Time Seen by Provider: 16:02 Initial Comments This 61 year old gentleman presents to the emergency room with a report demonstrating right lower extremity DVT. Patient had surgery for an ankle fracture by Dr. Irene. An ultrasound was ordered in follow-up and DVT was diagnosed. Patient was casted and instructed to follow-up with his primary care provider for treatment of the DVT. Patient has no primary care provider and so presented to the emergency room for treatment. His vital signs are within normal limits. He denies any chest pain or dyspnea. Allergies and Home Medications Allergies Coded Allergies: No Known Drug Allergies (Unverified , 03/16/17) Home Medications Acetaminophen 500 Mg Tablet, 500 MG PO HS PRN for PAIN-MILD, (Reported) Acetaminophen with Codeine 1 Each Tablet, 1 EACH PO Q4H PRN for PAIN-MILD TO MODERATE, #30 Prescribed by: GUILLE SURESH on 03/18/17 1047 Meloxicam 15 Mg Tablet, 15 MG PO, (Reported) Oxycodone HCl/Acetaminophen 1 Each Tablet, 1 EACH PO Q4H PRN for PAIN-MODERATE, #30 Prescribed by: GUILLE SURESH on 03/18/17 0959 Rivaroxaban 15 Mg Tablet, 15 MG PO BID, #42 Prescribed by: KONG PAIGE on 04/06/17 1726 Constitutional: no symptoms reported EENTM: no symptoms reported Respiratory: no symptoms reported Cardiovascular: see HPI Gastrointestinal: no symptoms reported Genitourinary: no symptoms reported Musculoskeletal: see HPI Skin: no symptoms reported Psychiatric/Neurological: No Symptoms Reported Hematologic/Lymphatic: See HPI Immunological/Allergic: no symptoms reported Past Xyzttam-Mjzaaf-Zmvvdj Hx Patient Social History Alcohol Use: Denies Use Recreational Drug Use: No Smoking Status: Never a Smoker Type Used: Cigarettes Recent Foreign Travel: No Contact w/Someone Who Travel: No Recent Infectious Disease Expo: No Recent Hopitalizations: No Immunizations Up To Date PED Vaccines UTD: No Seasonal Allergies Seasonal Allergies: No Surgeries HX Surgeries: Yes Surgeries: Orthopedic Respiratory Hx Respiratory Disorders: No Cardiovascular Hx Cardiac Disorders: No Neurological Hx Neurological Disorders: No Genitourinary Hx Genitourinary Disorders: No Gastrointestinal Hx Gastrointestinal Disorders: No Musculoskeletal Hx Musculoskeletal Disorders: No Endocrine Hx Endocrine Disorders: No HEENT HX ENT Disorders: No Cancer Hx Cancer: Yes Cancer: Lymphoma Psychosocial Hx Psychiatric Problems: No Family Medical History Family Medial History: Alzheimer's disease 19 MOTHER Cardiovascular disease 19 FATHER, Diabetes mellitus 19 FATHER, Physical Exam Vital Signs Vital Sign - Last 12Hours 04/06/17 04/06/17 15:45 17:40 Temp 98.0 Pulse 78 Resp 16 B/P (MAP) 139/80 Pulse Ox 98 Capillary Refill : Less Than 3 Seconds General Appearance: No Apparent Distress, WD/WN HEENT: Normal ENT Inspection Respiratory: Normal Breath Sounds, No Respiratory Distress Cardiovascular: Regular Rate, Rhythm, No Edema, No Murmur Extremity: Other (right lower extremity in a short leg cast. Range of motion and capillary refill normal in the toes.) Neurologic/Psychiatric: Alert, Oriented x3, No Motor/Sensory Deficits, Normal Mood/Affect, surfacing technician II-XII Norm as Tested Skin: Normal Color, Warm/Dry Progress/Results/Core Measures Results/Orders Lab Results My Orders Vital Signs/I&O Blood Pressure Mean: 99 Progress Note : Progress Note preop labs were reviewed. CBC and coags were confirmed in the ER before prescribing. Xarelto was prescribed for initial therapy. Patient was instructed to establish with a primary care provider as soon as possible. He had commented briefly about some bright red blood on the toilet paper on several occasions. He was instructed to discuss this with a primary care provider and obtaining screening colonoscopy. I also discussed the case with Dr. Irene his stated he wanted the patient managed by primary care provider her anticoagulation. Instructed the patient to see his primary care provider but patient did not have one. Departure Impression Impression: Primary Impression: Right leg DVT Qualified Codes: I82.441 - Acute embolism and thrombosis of right tibial vein Disposition: HOME, SELF-CARE Condition: Improved Departure-Patient Inst. Decision time for Depature: 17:20 Referrals: NO,LOCAL PHYSICIAN (PCP/Family) Primary Care Physician Patient Instructions: Deep Vein Thrombosis (Blood Clots in the Legs) (DC) Add. Discharge Instructions: Start Xarelto immediately and consistently take the doses as prescribed. The three-week starter prescription is being provided by the ER. The remainder of the treatment should be managed by your primary care provider. Please see a primary care provider soon as possible. Return to care if you have worsening symptoms including chest pain, rapid heart rate or shortness of breath. Avoid use of NSAID medications such as ibuprofen, meloxicam, aspirin, naproxen, etc. while taking Xarelto. Do not miss any doses of Xarelto. Take with food. All discharge instructions reviewed with patient and/or family. Voiced understanding. Scripts Rivaroxaban (Xarelto) 15 Mg Tablet 15 MG PO BID, #42 TAB Prov: KONG COSTA MD 04/06/17 KONG COSTA MD Apr 06, 2017 17:27
[2017-04-06 17:40] VITALS: BP 125/73
== END 2017-04-06 17:40 | disposition home or self-care (01) ==
LOC: EDUNIT# 15:17 → ER 15:19
DX: I82.401 Acute embolism and thrombosis of unspecified deep veins of right lower extremity (principal); Z87.81 Personal history of (healed) traumatic fracture; Z79.01 Long term (current) use of anticoagulants; Z98.890 Other specified postprocedural states; Z85.72 Personal history of non-Hodgkin lymphomas
CPT/HCPCS: 36415; 85025; 85610; 85730; 99282

== ENCOUNTER 2018-01-23 15:55 | Emergency (ER) | payer BC ==
[~2018-01-23 15:55] MED LIST changes: +MELO15TA14 PO; +RIVA15TA PO
--- OUTSIDE RECORDS SUMMARY | 2018-01-23 16:21 | XMS REPORT | Continuity of Care Document ---
Demographics Preferred Language Unknown Marital Status Unknown Latter Day Affiliation Unknown Race Unknown Ethnic Group Unknown Author Author [facility] Address Unknown Phone Unavailable Allergies There is no data. Medications There is no data. Problems Date Dx Coded Attending Type Code Diagnosis Diagnosed By 01/07/2013 380.4 CERUMEN IMPACTION 01/07/2013 784.91 drip or drainage down throat from above 01/07/2013 V70.0 NORMAL ROUTINE HISTORY AND PHYSICAL 01/07/2013 V76.44 PROSTATE CANCER SCREENING Procedures Code Description [place] [address] ROUTINE VENIPUNCTURE 01/07/2013 98966 EAR LAVAGE 01/07/2013 19394 CMP 01/07/2013 98896 LIPID PANEL 01/07/2013 49589 TSH 01/07/2013 30620 CBC 01/07/2013 Results There is no data. Encounters ACCT No. Visit Date/Time Discharge Status Pt. Type Provider Facility Loc./Unit Complaint [id number] 01/07/2013 12:22:00 Document Registration
== END 2018-01-23 16:06 | disposition left against medical advice (07) ==
LOC: EDUNIT# 15:55 → ER 15:56
DX: M25.511 Pain in right shoulder (principal)

== ENCOUNTER 2018-11-06 10:45 | Day surgery (SDC) | payer BC ==
[~2018-11-06] VITALS: Ht 180.3 cm; Wt 113.5 kg
--- OUTSIDE RECORDS SUMMARY | 2018-11-06 10:49 | XMS REPORT | Continuity of Care Document ---
Demographics Preferred Language Unknown Marital Status Unknown Confucianism Affiliation Unknown Race Unknown Ethnic Group Unknown Author Author [facility] Address Unknown Phone Unavailable Allergies There is no data. Medications There is no data. Problems Date Dx Coded Attending Type Code Diagnosis Diagnosed By 01/07/2013 380.4 CERUMEN IMPACTION 01/07/2013 784.91 drip or drainage down throat from above 01/07/2013 V70.0 NORMAL ROUTINE HISTORY AND PHYSICAL 01/07/2013 V76.44 PROSTATE CANCER SCREENING Procedures Code Description [place] [address] ROUTINE VENIPUNCTURE 01/07/2013 49062 EAR LAVAGE 01/07/2013 74157 CMP 01/07/2013 72415 LIPID PANEL 01/07/2013 39139 TSH 01/07/2013 52256 CBC 01/07/2013 Results There is no data. Encounters ACCT No. Visit Date/Time Discharge Status Pt. Type Provider Facility Loc./Unit Complaint [id number] 01/07/2013 12:22:00 Document Registration
[2018-11-06] MEDS: LACTATED RINGERS 1,000 ML IV PRN ×2 (11:15→13:23)
[2018-11-06] MEDS ORDERED: ceFAZolin 2 GM IV Premixed 50 ML ONE (11:22)
[2018-11-06 11:34] VITALS: BP 124/82
[2018-11-06] MEDS ORDERED: ceFAZolin 2 GM IV Premixed 50 ML IV ONE (12:00)
[2018-11-06] MEDS ORDERED: proPOfol 200 MG/20 ML (DIPRIVAN) VIAL IV ONE (12:04)
[2018-11-06] MEDS ORDERED: ONDANSETRON 4 MG/2 ML (SDV) Z0FRAN ONE ×2 (12:04→13:50)
[2018-11-06] MEDS ORDERED: ROCURONIUM 10 MG/ML 5 ML SYRINGE IV ONE (12:04)
[2018-11-06] MEDS ORDERED: SEVOFLURANE (ULTANE) 15 ML INHAL SOLN ONE (12:04)
[2018-11-06] MEDS ORDERED: fentaNYL INJECTION 100 MCG/2 ML AMP ONE (12:04)
[2018-11-06] MEDS ORDERED: LIDOCAINE PF 2% 5 ML (XYLOCAINE) VIAL ONE (12:04)
[2018-11-06] MEDS ORDERED: DEXAMETHASONE 10 MG/ML (DECADRON) 1 ML VIAL ONE (12:04)
[2018-11-06] MEDS ORDERED: MIDAZOLAM 2 MG/2 ML (VERSED) VIAL ONE (12:04)
--- NOTE | 2018-11-06 12:44 | Progress Note-Pre Operative ---
Pre-Operative Progress Note H&P Reviewed The H&P was reviewed, patient examined and no changes noted. Date Seen by Provider: Nov 06, 2018 Time Seen by Provider: 12:00 Date H&P Reviewed: Nov 06, 2018 Time H&P Reviewed: 12:00 Pre-Operative Diagnosis: symptomatic reducible umbilical hernia PEGGY CRAWFORD MD Nov 06, 2018 12:44
--- NOTE | 2018-11-06 12:46 | Progress Note-Post Operative ---
Post-Operative Progess Note Surgeon (s)/Labor Specialist (s) Surgeon PEGGY CRAWFODR MD Labor Specialist: johnathan fuentes COLOR CONSULTANT Pre-Operative Diagnosis symptomatic reducible umbilical hernia Post-Operative Diagnosis same Procedure & Operative Findings Date of Procedure 11/06/18 Procedure Performed/Findings open umbilical hernia repair with mesh Anesthesia Type GET Estimated Blood Loss Estimated blood loss (mL): minimal Specimens/Packing Specimens Removed hernia sac PEGGY CRAWFORD MD Nov 06, 2018 12:46
[2018-11-06] MEDS ORDERED: HYDR-34 PO (12:47)
[2018-11-06] MEDS ORDERED: BUP/EPI 0.5% 1:200,000 (SENSORCAINE) 30 ML VIAL ONE (12:47)
--- NOTE | 2018-11-06 12:48 | Discharge Inst-Surgical ---
D/C Lap Instructions-YVETTE Follow Up Appt in 2 weeks Activity as tolerated No driving for 24 hours No driving while on pain medications Incentive Spirometry use every 2 hours while awake Regular Diet Symptoms to Report: Fever over 101 degree F, Nausea/Vomiting Infection Signs and Symptoms to report: Increased redness, Foul odor of wound, Increased drainage Bathing instructions: May shower Operative Area Clean/Dry; Keep incision clean/dry If any problems/questions: Contact your physician or go to Emergency Room PEGGY CRAWFORD MD Nov 06, 2018 12:48
[2018-11-06] MEDS ORDERED: ONDANSETRON 4 MG/2 ML (SDV) Z0FRAN IVP PRN ×2 (13:00→14:00)
[2018-11-06] MEDS ORDERED: oxyCODONE/APAP 5/325MG (PERCOCET 5) TABLET PO PRN (13:00)
[2018-11-06] MEDS ORDERED: ACETAMINOPHEN 325 MG TABLET PO PRN (13:00)
[2018-11-06] MEDS ORDERED: morphine INJ 10 MG/ML 1ML (SYR OR VIAL) IVP PRN (13:00)
[2018-11-06] MEDS ORDERED: GLYCOPYRROLATE 0.2 MG/ML (ROBINUL) 2 ML VIAL ONE (13:12)
[2018-11-06] MEDS ORDERED: NEOSTIGMINE 1 MG/ML 5 ML SYRINGE ONE (13:12)
[2018-11-06] MEDS ORDERED: KETOROLAC 30 MG/ML VIAL ONE (13:46)
[2018-11-06] MEDS ORDERED: morphine INJ 10 MG/ML 1ML (SYR OR VIAL) ONE (13:46)
[2018-11-06] MEDS ORDERED: HYDROmorphone 2 MG/ML VIAL (DILAUDID) ONE (13:53)
[2018-11-06] MEDS ORDERED: morphine INJ 10 MG/ML 1ML (SYR OR VIAL) IVP ONE (14:00)
[2018-11-06] MEDS ORDERED: KETOROLAC 30 MG/ML VIAL IVP ONE (14:00)
[2018-11-06] MEDS ORDERED: HYDROmorphone 2 MG/ML VIAL (DILAUDID) IV ONE (14:00)
[2018-11-06 14:50] VITALS: BP 132/74
[2018-11-06 15:20] VITALS: BP 111/70
[2018-11-06 15:50] VITALS: BP 117/73
--- NOTE | 2018-11-06 16:00 | NUR ---
pt sao2 down to 82% on room air when resting. o2 reapplied at 3l/nc. able to take deep breaths et sao2 up to 98% will cont to monitor.
--- NOTE | 2018-11-06 16:30 | NUR ---
sao2 cont to drop into the 80s when o2 off. pt very drowsy. lungs cta. o2 reapplied. will cont to monitor.
[2018-11-06 17:00] VITALS: BP 129/72
--- NOTE | 2018-11-06 17:00 | NUR ---
pt more alert. up to get dressed. episode of n/v. sao2 remains in the 90s (90-94%) pt reports he feels ready to dc home. with pt will monitor pt closely for sx/sx distress et return to ER if needed.
[2018-11-06 17:20] VITALS: BP 129/72
--- NOTE | 2018-11-10 13:41 | OPERATIVE REPORT ---
DATE OF SERVICE: 11/06/2018 PREOPERATIVE DIAGNOSIS: Symptomatic reducible umbilical hernia. POSTOPERATIVE DIAGNOSIS: Symptomatic reducible umbilical hernia. PROCEDURE: Open umbilical hernia repair with mesh. SURGEON: Peggy Crawford MD. CONSTRUCTION JOB COST ESTIMATOR: Yoshi Carranza APRN. ANESTHESIA: General endotracheal. ESTIMATED BLOOD LOSS: Minimal. FINDINGS: Umbilical hernia with omentum within the hernia sac. The fascial defect was approximately 1.5 cm in size. DISPOSITION: The patient tolerated the procedure well. INDICATIONS: The patient is a 63-year-old male, who was seen in the office for a sharp pain in the umbilical region, which he had noticed one week prior. He also reported a bulge in the region. He states that he might have had some discomfort in the region before in the past; however, the pain was self-limited. Upon examination, he was found to have a reducible umbilical hernia; however, very tender to palpation. He did not report any nausea, no vomiting as well as no diarrhea or constipation. DESCRIPTION OF PROCEDURE: The patient was brought to the operating room and laid supine on the table. After adequate IV pain and sedative medications and general endotracheal intubation, the abdomen was prepped and draped in a standard surgical fashion. A 0.5% Marcaine with epinephrine was used to anesthetize the supraumbilical rim and a crescent shaped skin incision was made using a 15 blade. The subcutaneous was then opened using electrocautery. The hernia sac was then identified and completely dissected out using blunt dissection as well as electrocautery to the fascial base. The hernia sac was then opened using Metzenbaum scissors and only omentum within the hernia sac, which was excised under direct visualization using electrocautery. A 6.4 cm coated polypropylene mesh was then placed into the defect and sutured transfascially as well as circumferentially using interrupted 0 Prolene sutures. Good hemostasis was observed. The subcutaneous tissue was then reapproximated using 3-0 Vicryl interrupted sutures and the skin was closed using 4-0 Monocryl running subcuticular suture. The tonsil sponges were then placed in the umbilicus followed by 4 x 4 gauze followed by a large Op-Site and an abdominal binder. The patient tolerated the procedure well. He was instructed to keep the abdominal binder on both day and night for the next two weeks; however, he may remove the dressing in approximately five days. He is instructed to also do no heavy lifting or exertion definitely for 2 weeks and then increase activity as tolerated. Job ID: [id number] DocumentID: [id number] Dictated Date: 11/10/2018 13:26:43 Manufacturing Tech Date: 11/10/2018 13:40:59 Dictated By: PEGGY CRAWFORD MD
== END 2018-11-06 17:20 | disposition home or self-care (01) ==
LOC: SDC 10:45
PROVIDERS: ATTEND Surgery
DX: K42.9 Umbilical hernia without obstruction or gangrene (principal); G47.33 Obstructive sleep apnea (adult) (pediatric); K21.9 Gastro-esophageal reflux disease without esophagitis; E66.9 Obesity, unspecified; Z68.34 Body mass index [BMI] 34.0-34.9, adult; Z87.891 Personal history of nicotine dependence
CPT/HCPCS: 87081; 88302